=== PATIENT | male | born 1975 | race African-American/Black ===

== ENCOUNTER 2016-12-19 19:11 | Emergency (ER) | payer OTHER ==
[~2016-12-19 19:11] MED LIST: BACTRIM DS DPS1 TAB PO; FLAGYL-DPS500 MG PO; HYDROCODONE 5MG/5 MG PO; MAALOX DPS30 ML PO; SURFAK DPS240 MG PO; TYLENOL DPS325 MG
--- NOTE | 2016-12-24 19:13 | ER ---
ADMIT: 12/19/2016 RM/LOC: ER [facility] MR#: [id number] [address] [id number] [place] [address] Emergency Room Report SEX: M AGE: 41 : 1975 DATE: 12/19/2016 HISTORY OF PRESENT ILLNESS: This is a 41-year-old male, presents to the emergency room complaining of very low abdominal pain. He said this started last night. He had some low-grade fever. He went to [place], and [place] decided that he needed to get a further evaluation and sent him over to us ER. Past medical history of diverticulitis. He was put on Cipro, metronidazole, and Zantac, but his records indicate that he is allergic to Cipro; however, he took one dose of the antibiotic today Cipro and metronidazole and nothing happened to him. SOCIAL HISTORY: Includes alcohol socially and 1 pack a day cigarette smoking. PHYSICAL EXAMINATION: VITAL SIGNS: Temperature is 100.8, blood pressure 130/79. ABDOMEN: Suprapubic tenderness. No radiation to any flank. SKIN: Good color and turgor. EXTREMITIES: Well perfused. NEUROLOGIC: Oriented x4. Mood and affect are appropriate. CT of the abdomen was done, appendix okay with diverticulitis. WBC 17.6, hemoglobin 13.5, hematocrit is 39.5, CRP 7.53, and GFR 87. INR is 1.0. Urine shows wbc's 1, rbc's 8, blood 2+, and ketones 1+. He does have some pain that was controlled with Dilaudid and some Zofran. IV fluids have been given to him. He feels much better. Even though we started the sepsis protocol on him, his lactic acid is normal. He got a noncomplicated diverticulitis based on the CT scan trying to find out any pathology in the appendix and so he is going to be going home. He really looks well. Fluids did help him and the medication we gave him in the ER. He can follow up with Dr. Jose Akhtar and advised to take his metronidazole as prescribed. I also gave him a prescription for dicyclomine. Instructions; bowel rest, clear fluids for 48 hours, and then start a high-fiber diet. Avoid seeds. Follow up with Jose Akhtar. Return if experience worse pain, nausea, vomiting, or unable to take p.o. medications. CLINICAL IMPRESSION: 1. Uncomplicated diverticulitis. 2. Fever. 3. Hematuria, microscopic. The patient is discharged. YOKO He / Donn Lofton MD / modl JOB #: [id number] CC: John Turk MD, Attending Physician ADMIT: 12/19/2016 RM/LOC: ER [facility] MR#: [id number] [address] [place] [id number] [place] [address] [place] [address] Emergency Room Report SEX: M AGE: 41 : 1975 Jose Akhtar MD, Family Physician
== END 2016-12-19 23:45 | disposition home or self-care (01) ==
LOC: ER 19:11
DX: K57.92 Diverticulitis of intestine, part unspecified, without perforation or abscess without bleeding (principal); R50.9 Fever, unspecified; R31.29 Other microscopic hematuria; F17.210 Nicotine dependence, cigarettes, uncomplicated; Z79.899 Other long term (current) drug therapy; Z88.1 Allergy status to other antibiotic agents